=== PATIENT | female | born 1965 | race Caucasian/White ===

== ENCOUNTER → 2022-06-20 | Outpatient (CLI) | payer BC | END | disposition home or self-care (01) | LOC: LAB 12:35 | PROVIDERS: ATTEND Family Medicine | DX: C56.9 Malignant neoplasm of unspecified ovary (principal); R10.9 Unspecified abdominal pain ==

== ENCOUNTER → 2022-06-24 | Outpatient (CLI) | payer BC | END | disposition home or self-care (01) | LOC: CT 01:41 | PROVIDERS: ATTEND Family Medicine | DX: C56.9 Malignant neoplasm of unspecified ovary (principal); N28.1 Cyst of kidney, acquired ==

== ENCOUNTER → 2023-06-01 | Outpatient (CLI) | payer BC ==
[2023-06-01 12:21] LABS: HEMATOCRIT 40.3 % (37.0-47.0); MEAN CELL VOLUME 108.9 fl (81.0-99.0); MEAN CORPUSCULAR HGB 36.8 pg (27.0-31.0); MEAN CORPUSCULAR HGB CONC 33.7 g/dl (33.0-37.0); MEAN PLATELET VOLUME 9.3 fl (9.6-12.3); PLATELET COUNT AUTOMATED 102 10*3/uL (130-400); RED CELL DISTRI WIDTH 14.4 % (0-14.5); WHITE BLOOD COUNT 4.7 10*3/uL (4.8-10.8)
[2023-06-01 12:47] LABS: ALKALINE PHOSPHATASE 84 U/L (46-116); BUN 10 mg/dl (9-23); CHLORIDE 105 mmol/L (98-107); POTASSIUM 4.3 mmol/L (3.4-5.1); SGPT/ALT 15 U/L (10-49); TOTAL PROTEIN 5.8 gm/dL (6.0-8.0)
[2023-06-01 12:51] LABS: MANUAL DIFF REFLEX YES
[2023-06-01 12:54] LABS: OVALOCYTES FEW; PLATELET SUFFICIENCY LOW (NORMAL); POLYCHROMASIA SLIGHT; TOTAL CELLS COUNTED 100 #CELLS
== END | disposition home or self-care (01) ==
LOC: CT 11:00
PROVIDERS: ATTEND Legal Medicine
DX: C56.9 Malignant neoplasm of unspecified ovary (principal); N28.1 Cyst of kidney, acquired; K76.0 Fatty (change of) liver, not elsewhere classified

== ENCOUNTER → 2023-06-08 | Outpatient (CLI) | payer BC ==
[2023-06-08 14:07] LABS: HEMATOCRIT 37.5 % (37.0-47.0); MEAN CELL VOLUME 110.6 fl (81.0-99.0); MEAN CORPUSCULAR HGB 38.1 pg (27.0-31.0); MEAN CORPUSCULAR HGB CONC 34.4 g/dl (33.0-37.0); MEAN PLATELET VOLUME 9.5 fl (9.6-12.3); PLATELET COUNT AUTOMATED 137 10*3/uL (130-400); RED BLOOD COUNT 3.39 10*6/uL (4.10-5.10); WHITE BLOOD COUNT 34.7 10*3/uL (4.8-10.8)
[2023-06-08 14:09] LABS: MANUAL DIFF REFLEX YES
[2023-06-08 14:33] LABS: ALKALINE PHOSPHATASE 73 U/L (46-116); BUN 8 mg/dl (9-23); CHLORIDE 108 mmol/L (98-107); PLATELET SUFFICIENCY NORMAL (NORMAL); POTASSIUM 3.9 mmol/L (3.4-5.1); SGPT/ALT 13 U/L (10-49); TOTAL CELLS COUNTED 100 #CELLS; TOTAL PROTEIN 5.3 gm/dL (6.0-8.0)
== END | disposition home or self-care (01) ==
LOC: LAB 13:21
PROVIDERS: ATTEND Legal Medicine
DX: C56.1 Malignant neoplasm of right ovary (principal)

== ENCOUNTER → 2023-06-15 | Outpatient (CLI) | payer BC ==
[2023-06-15 15:56] LABS: HEMATOCRIT 36.4 % (37.0-47.0); MEAN CELL VOLUME 107.4 fl (81.0-99.0); MEAN CORPUSCULAR HGB 37.5 pg (27.0-31.0); MEAN CORPUSCULAR HGB CONC 34.9 g/dl (33.0-37.0); PLATELET COUNT AUTOMATED 138 10*3/uL (130-400); RED BLOOD COUNT 3.39 10*6/uL (4.10-5.10); RED CELL DISTRI WIDTH 13.4 % (0-14.5); WHITE BLOOD COUNT 2.5 10*3/uL (4.8-10.8)
[2023-06-15 15:59] LABS: MANUAL DIFF REFLEX YES
[2023-06-15 16:18] LABS: ALKALINE PHOSPHATASE 65 U/L (46-116); BUN 13 mg/dl (9-23); CHLORIDE 106 mmol/L (98-107); POTASSIUM 3.9 mmol/L (3.4-5.1); SGPT/ALT 35 U/L (10-49); TOTAL PROTEIN 5.8 gm/dL (6.0-8.0)
[2023-06-15 16:21] LABS: BASOPHILS 4 % (0-1); PLATELET SUFFICIENCY NORMAL (NORMAL); TOTAL CELLS COUNTED 100 #CELLS
== END | disposition home or self-care (01) ==
LOC: LAB 15:16
PROVIDERS: ATTEND Legal Medicine
DX: Z45.2 Encounter for adjustment and management of vascular access device (principal); C56.1 Malignant neoplasm of right ovary

== ENCOUNTER → 2023-06-22 | Outpatient (CLI) | payer BC ==
[2023-06-22 14:55] LABS: BASO # 0.1 10*3/uL (0.0-0.1); BASO % 0.9 % (0.0-1.0); EOS # 0.1 10*3/uL (0.0-0.4); EOS % 1.5 % (1.0-4.0); HEMATOCRIT 38.9 % (37.0-47.0); LYMPH # 1.5 10*3/uL (1.3-4.4); LYMPH % 26.9 % (27.0-41.0); MEAN CELL VOLUME 106.3 fl (81.0-99.0); MEAN CORPUSCULAR HGB 37.2 pg (27.0-31.0); MEAN PLATELET VOLUME 9.6 fl (9.6-12.3); MONO # 0.4 10*3/uL (0.1-1.0); MONO % 7.8 % (3.0-9.0); NEUT # 3.4 10*3/uL (2.3-7.9); NEUT % 62.5 % (47.0-73.0); PLATELET COUNT AUTOMATED 142 10*3/uL (130-400); RED BLOOD COUNT 3.66 10*6/uL (4.10-5.10); WHITE BLOOD COUNT 5.4 10*3/uL (4.8-10.8)
[2023-06-22 15:16] LABS: ALKALINE PHOSPHATASE 72 U/L (46-116); BUN 12 mg/dl (9-23); CHLORIDE 105 mmol/L (98-107); POTASSIUM 3.9 mmol/L (3.4-5.1); SGPT/ALT 16 U/L (10-49); TOTAL PROTEIN 5.8 gm/dL (6.0-8.0)
== END | disposition home or self-care (01) ==
LOC: LAB 14:03
PROVIDERS: ATTEND Legal Medicine
DX: Z45.2 Encounter for adjustment and management of vascular access device (principal); C56.1 Malignant neoplasm of right ovary

== ENCOUNTER → 2023-07-03 | Outpatient (CLI) | payer BC | END | disposition home or self-care (01) | LOC: LAB 11:51 | PROVIDERS: ATTEND Legal Medicine | DX: Z45.2 Encounter for adjustment and management of vascular access device (principal); C56.1 Malignant neoplasm of right ovary ==

== ENCOUNTER → 2023-07-06 | Outpatient (CLI) | payer BC ==
[2023-07-06 13:07] LABS: HEMATOCRIT 38.6 % (37.0-47.0); MEAN CELL VOLUME 108.4 fl (81.0-99.0); MEAN CORPUSCULAR HGB 36.5 pg (27.0-31.0); MEAN CORPUSCULAR HGB CONC 33.7 g/dl (33.0-37.0); MEAN PLATELET VOLUME 9.8 fl (9.6-12.3); PLATELET COUNT AUTOMATED 116 10*3/uL (130-400); RED BLOOD COUNT 3.56 10*6/uL (4.10-5.10); WHITE BLOOD COUNT 3.3 10*3/uL (4.8-10.8)
[2023-07-06 13:18] LABS: MANUAL DIFF REFLEX YES
[2023-07-06 13:27] LABS: ALKALINE PHOSPHATASE 54 U/L (46-116); BUN 14 mg/dl (9-23); CHLORIDE 109 mmol/L (98-107); SGPT/ALT 23 U/L (10-49)
[2023-07-06 13:55] LABS: PLATELET SUFFICIENCY LOW (NORMAL); POLYCHROMASIA SLIGHT; TOTAL CELLS COUNTED 100 #CELLS
== END | disposition home or self-care (01) ==
LOC: LAB 11:24
PROVIDERS: ATTEND Legal Medicine
DX: Z45.2 Encounter for adjustment and management of vascular access device (principal); C56.1 Malignant neoplasm of right ovary

== ENCOUNTER → 2023-07-14 | Outpatient (CLI) | payer BC ==
[2023-07-14 14:24] LABS: BASO % 0.8 % (0.0-1.0); EOS # 0.1 10*3/uL (0.0-0.4); EOS % 1.4 % (1.0-4.0); HEMATOCRIT 39.7 % (37.0-47.0); LYMPH # 1.5 10*3/uL (1.3-4.4); LYMPH % 29.7 % (27.0-41.0); MEAN CELL VOLUME 106.4 fl (81.0-99.0); MEAN CORPUSCULAR HGB 37.8 pg (27.0-31.0); MEAN CORPUSCULAR HGB CONC 35.5 g/dl (33.0-37.0); MEAN PLATELET VOLUME 9.5 fl (9.6-12.3); MONO # 0.4 10*3/uL (0.1-1.0); MONO % 8.1 % (3.0-9.0); NEUT # 3.1 10*3/uL (2.3-7.9); NEUT % 59.8 % (47.0-73.0); PLATELET COUNT AUTOMATED 136 10*3/uL (130-400); RED BLOOD COUNT 3.73 10*6/uL (4.10-5.10); RED CELL DISTRI WIDTH 13.7 % (0-14.5); WHITE BLOOD COUNT 5.2 10*3/uL (4.8-10.8)
[2023-07-14 14:48] LABS: ALKALINE PHOSPHATASE 60 U/L (46-116); BUN 11 mg/dl (9-23); CHLORIDE 106 mmol/L (98-107); POTASSIUM 4.2 mmol/L (3.4-5.1); SGPT/ALT 22 U/L (10-49); TOTAL PROTEIN 6.2 gm/dL (6.0-8.0)
== END | disposition home or self-care (01) ==
LOC: LAB 13:15
PROVIDERS: ATTEND Legal Medicine
DX: Z45.2 Encounter for adjustment and management of vascular access device (principal); C56.1 Malignant neoplasm of right ovary

== ENCOUNTER → 2023-07-20 | Outpatient (CLI) | payer BC ==
[2023-07-20 12:00] LABS: BASO % 1.1 % (0.0-1.0); EOS # 0.1 10*3/uL (0.0-0.4); HEMATOCRIT 39.9 % (37.0-47.0); LYMPH # 1.2 10*3/uL (1.3-4.4); LYMPH % 44.7 % (27.0-41.0); MEAN CELL VOLUME 106.1 fl (81.0-99.0); MEAN CORPUSCULAR HGB 36.2 pg (27.0-31.0); MEAN CORPUSCULAR HGB CONC 34.1 g/dl (33.0-37.0); MEAN PLATELET VOLUME 9.6 fl (9.6-12.3); MONO # 0.2 10*3/uL (0.1-1.0); MONO % 5.7 % (3.0-9.0); NEUT # 1.2 10*3/uL (2.3-7.9); NEUT % 45.5 % (47.0-73.0); PLATELET COUNT AUTOMATED 126 10*3/uL (130-400); RED BLOOD COUNT 3.76 10*6/uL (4.10-5.10); RED CELL DISTRI WIDTH 13.2 % (0-14.5); WHITE BLOOD COUNT 2.6 10*3/uL (4.8-10.8)
[2023-07-20 12:25] LABS: ALKALINE PHOSPHATASE 52 U/L (46-116); BUN 10 mg/dl (9-23); CHLORIDE 110 mmol/L (98-107); CHOLESTEROL 152 mg/dL (<200); LDL CHOLESTEROL 76 mg/dL (9-159); POTASSIUM 4.1 mmol/L (3.4-5.1); SGPT/ALT 40 U/L (10-49); TRIGLYCERIDES 158 mg/dl (<150)
== END | disposition home or self-care (01) ==
LOC: LAB 10:24
PROVIDERS: Family Medicine; ATTEND Legal Medicine
DX: Z45.2 Encounter for adjustment and management of vascular access device (principal); C56.1 Malignant neoplasm of right ovary; I10 Essential (primary) hypertension; E78.2 Mixed hyperlipidemia

== ENCOUNTER → 2023-07-27 | Outpatient (CLI) | payer BC ==
[2023-07-27 14:50] LABS: BASO % 0.8 % (0.0-1.0); EOS # 0.1 10*3/uL (0.0-0.4); EOS % 2.2 % (1.0-4.0); HEMATOCRIT 40.8 % (37.0-47.0); LYMPH # 1.3 10*3/uL (1.3-4.4); LYMPH % 25.8 % (27.0-41.0); MEAN CELL VOLUME 106.8 fl (81.0-99.0); MEAN CORPUSCULAR HGB 36.1 pg (27.0-31.0); MEAN CORPUSCULAR HGB CONC 33.8 g/dl (33.0-37.0); MEAN PLATELET VOLUME 9.8 fl (9.6-12.3); MONO # 0.4 10*3/uL (0.1-1.0); MONO % 8.5 % (3.0-9.0); NEUT # 3.2 10*3/uL (2.3-7.9); NEUT % 62.3 % (47.0-73.0); PLATELET COUNT AUTOMATED 132 10*3/uL (130-400); RED BLOOD COUNT 3.82 10*6/uL (4.10-5.10); RED CELL DISTRI WIDTH 13.2 % (0-14.5); WHITE BLOOD COUNT 5.1 10*3/uL (4.8-10.8)
[2023-07-27 15:08] LABS: ALKALINE PHOSPHATASE 62 U/L (46-116); BUN 9 mg/dl (9-23); CHLORIDE 112 mmol/L (98-107); POTASSIUM 3.4 mmol/L (3.4-5.1); SGPT/ALT 17 U/L (10-49); TOTAL PROTEIN 5.1 gm/dL (6.0-8.0)
== END | disposition short-term general hospital (02) ==
LOC: LAB 13:42
PROVIDERS: ATTEND Legal Medicine
DX: C56.1 Malignant neoplasm of right ovary (principal)

== ENCOUNTER → 2023-08-10 | Outpatient (CLI) | payer BC ==
[2023-08-10 12:25] LABS: HEMATOCRIT 38.2 % (37.0-47.0); MEAN CELL VOLUME 104.4 fl (81.0-99.0); MEAN CORPUSCULAR HGB 35.2 pg (27.0-31.0); MEAN CORPUSCULAR HGB CONC 33.8 g/dl (33.0-37.0); MEAN PLATELET VOLUME 9.4 fl (9.6-12.3); PLATELET COUNT AUTOMATED 150 10*3/uL (130-400); RED BLOOD COUNT 3.66 10*6/uL (4.10-5.10)
[2023-08-10 12:43] LABS: MANUAL DIFF REFLEX YES; WHITE BLOOD COUNT 1.9 10*3/uL (4.8-10.8)
[2023-08-10 13:03] LABS: BASOPHILS 1 % (0-1); TOTAL CELLS COUNTED 100 #CELLS
[2023-08-10 13:04] LABS: PLATELET SUFFICIENCY NORMAL (NORMAL)
[2023-08-10 13:06] LABS: ATYPICAL LYMPHS 2 % (0-0)
[2023-08-10 13:07] LABS: ALKALINE PHOSPHATASE 51 U/L (46-116); BUN 8 mg/dl (9-23); CHLORIDE 106 mmol/L (98-107); POTASSIUM 3.9 mmol/L (3.4-5.1); SGPT/ALT 61 U/L (10-49); TOTAL PROTEIN 5.9 gm/dL (6.0-8.0)
== END | disposition home or self-care (01) ==
LOC: LAB 11:26
PROVIDERS: ATTEND Legal Medicine
DX: Z45.2 Encounter for adjustment and management of vascular access device (principal); C56.1 Malignant neoplasm of right ovary

== ENCOUNTER → 2023-08-17 | Outpatient (CLI) | payer BC ==
[2023-08-17 14:06] LABS: BASO % 0.5 % (0.0-1.0); EOS # 0.1 10*3/uL (0.0-0.4); EOS % 1.4 % (1.0-4.0); HEMATOCRIT 38.6 % (37.0-47.0); LYMPH # 1.5 10*3/uL (1.3-4.4); LYMPH % 25.1 % (27.0-41.0); MEAN CELL VOLUME 103.8 fl (81.0-99.0); MEAN CORPUSCULAR HGB 36.3 pg (27.0-31.0); MEAN PLATELET VOLUME 9.6 fl (9.6-12.3); MONO # 0.4 10*3/uL (0.1-1.0); MONO % 6.4 % (3.0-9.0); NEUT # 3.8 10*3/uL (2.3-7.9); NEUT % 65.7 % (47.0-73.0); PLATELET COUNT AUTOMATED 142 10*3/uL (130-400); RED BLOOD COUNT 3.72 10*6/uL (4.10-5.10); RED CELL DISTRI WIDTH 12.8 % (0-14.5); WHITE BLOOD COUNT 5.8 10*3/uL (4.8-10.8)
[2023-08-17 14:33] LABS: ALKALINE PHOSPHATASE 72 U/L (46-116); BUN 7 mg/dl (9-23); CHLORIDE 107 mmol/L (98-107); POTASSIUM 3.8 mmol/L (3.4-5.1); SGPT/ALT 26 U/L (10-49); TOTAL PROTEIN 5.8 gm/dL (6.0-8.0)
== END | disposition home or self-care (01) ==
LOC: LAB 13:04
PROVIDERS: ATTEND Legal Medicine
DX: Z45.2 Encounter for adjustment and management of vascular access device (principal); C56.1 Malignant neoplasm of right ovary

== ENCOUNTER → 2023-08-24 | Outpatient (CLI) | payer BC ==
[~2023-08-24] VITALS: Ht 165.1 cm; Wt 48.5 kg
[2023-08-24 11:37] VITALS: BP 132/72
[2023-08-24 13:07] LABS: BASO % 1.1 % (0.0-1.0); EOS # 0.1 10*3/uL (0.0-0.4); EOS % 2.2 % (1.0-4.0); HEMATOCRIT 37.5 % (37.0-47.0); LYMPH # 1.3 10*3/uL (1.3-4.4); LYMPH % 36.3 % (27.0-41.0); MEAN CELL VOLUME 101.9 fl (81.0-99.0); MEAN CORPUSCULAR HGB 35.3 pg (27.0-31.0); MEAN CORPUSCULAR HGB CONC 34.7 g/dl (33.0-37.0); MEAN PLATELET VOLUME 9.9 fl (9.6-12.3); MONO # 0.3 10*3/uL (0.1-1.0); MONO % 7.6 % (3.0-9.0); NEUT # 1.9 10*3/uL (2.3-7.9); NEUT % 52.5 % (47.0-73.0); PLATELET COUNT AUTOMATED 165 10*3/uL (130-400); RED BLOOD COUNT 3.68 10*6/uL (4.10-5.10); RED CELL DISTRI WIDTH 13.2 % (0-14.5); WHITE BLOOD COUNT 3.7 10*3/uL (4.8-10.8)
[2023-08-24 13:34] LABS: ALKALINE PHOSPHATASE 53 U/L (46-116); BUN 10 mg/dl (9-23); CHLORIDE 109 mmol/L (98-107); POTASSIUM 4.2 mmol/L (3.4-5.1); SGPT/ALT 16 U/L (10-49); TOTAL PROTEIN 5.9 gm/dL (6.0-8.0)
== END | disposition home or self-care (01) ==
LOC: LAB 11:00
PROVIDERS: ATTEND Legal Medicine
DX: Z45.2 Encounter for adjustment and management of vascular access device (principal); C56.1 Malignant neoplasm of right ovary

== ENCOUNTER → 2023-08-31 | Outpatient (CLI) | payer BC ==
[2023-08-31 13:04] LABS: HEMATOCRIT 38.4 % (37.0-47.0); MEAN CELL VOLUME 105.2 fl (81.0-99.0); MEAN CORPUSCULAR HGB 34.5 pg (27.0-31.0); MEAN CORPUSCULAR HGB CONC 32.8 g/dl (33.0-37.0); PLATELET COUNT AUTOMATED 99 10*3/uL (130-400); RED BLOOD COUNT 3.65 10*6/uL (4.10-5.10); RED CELL DISTRI WIDTH 13.2 % (0-14.5); WHITE BLOOD COUNT 8.4 10*3/uL (4.8-10.8)
[2023-08-31 13:06] LABS: MANUAL DIFF REFLEX YES
[2023-08-31 13:37] LABS: ALKALINE PHOSPHATASE 65 U/L (46-116); BUN 8 mg/dl (9-23); CHLORIDE 107 mmol/L (98-107); POTASSIUM 3.9 mmol/L (3.4-5.1); SGPT/ALT 27 U/L (5-49); TOTAL PROTEIN 5.6 gm/dL (6.0-8.0)
[2023-08-31 13:48] LABS: BASOPHILS 1 % (0-1); PLATELET SUFFICIENCY LOW (NORMAL); TOTAL CELLS COUNTED 100 #CELLS
== END | disposition home or self-care (01) ==
LOC: LAB 00:59
PROVIDERS: ATTEND Legal Medicine
DX: Z45.2 Encounter for adjustment and management of vascular access device (principal); C56.1 Malignant neoplasm of right ovary

== ENCOUNTER → 2023-09-07 | Outpatient (CLI) | payer BC ==
[2023-09-07 12:53] LABS: BASO % 0.7 % (0.0-1.0); EOS # 0.1 10*3/uL (0.0-0.4); EOS % 2.1 % (1.0-4.0); HEMATOCRIT 37.8 % (37.0-47.0); LYMPH # 1.2 10*3/uL (1.3-4.4); LYMPH % 42.1 % (27.0-41.0); MEAN CELL VOLUME 104.7 fl (81.0-99.0); MEAN CORPUSCULAR HGB 35.2 pg (27.0-31.0); MEAN CORPUSCULAR HGB CONC 33.6 g/dl (33.0-37.0); MEAN PLATELET VOLUME 9.9 fl (9.6-12.3); MONO # 0.3 10*3/uL (0.1-1.0); MONO % 9.6 % (3.0-9.0); NEUT # 1.3 10*3/uL (2.3-7.9); NEUT % 45.2 % (47.0-73.0); PLATELET COUNT AUTOMATED 139 10*3/uL (130-400); RED BLOOD COUNT 3.61 10*6/uL (4.10-5.10); RED CELL DISTRI WIDTH 13.5 % (0-14.5); WHITE BLOOD COUNT 2.9 10*3/uL (4.8-10.8)
[2023-09-07 13:05] LABS: ALKALINE PHOSPHATASE 59 U/L (46-116); BUN 12 mg/dl (9-23); CHLORIDE 109 mmol/L (98-107); SGPT/ALT 12 U/L (5-49); TOTAL PROTEIN 5.7 gm/dL (6.0-8.0)
== END | disposition home or self-care (01) ==
LOC: LAB 00:42
PROVIDERS: ATTEND Legal Medicine
DX: Z45.2 Encounter for adjustment and management of vascular access device (principal); C56.1 Malignant neoplasm of right ovary

== ENCOUNTER → 2023-09-11 | Outpatient (CLI) | payer BC | END | disposition home or self-care (01) | LOC: US 08:00 | PROVIDERS: ATTEND Legal Medicine | DX: K80.20 Calculus of gallbladder without cholecystitis without obstruction (principal); N28.1 Cyst of kidney, acquired; Z87.19 Personal history of other diseases of the digestive system ==

== ENCOUNTER → 2023-09-14 | Outpatient (CLI) | payer BC ==
[2023-09-14 12:30] LABS: HEMATOCRIT 39.1 % (37.0-47.0); MEAN CELL VOLUME 103.4 fl (81.0-99.0); MEAN CORPUSCULAR HGB 35.4 pg (27.0-31.0); MEAN CORPUSCULAR HGB CONC 34.3 g/dl (33.0-37.0); MEAN PLATELET VOLUME 9.5 fl (9.6-12.3); PLATELET COUNT AUTOMATED 172 10*3/uL (130-400); RED BLOOD COUNT 3.78 10*6/uL (4.10-5.10); RED CELL DISTRI WIDTH 13.9 % (0-14.5)
[2023-09-14 12:31] LABS: MANUAL DIFF REFLEX YES
[2023-09-14 12:49] LABS: ALKALINE PHOSPHATASE 90 U/L (46-116); BUN 7 mg/dl (9-23); CHLORIDE 110 mmol/L (98-107); POTASSIUM 3.9 mmol/L (3.4-5.1); SGPT/ALT 14 U/L (5-49)
[2023-09-14 13:17] LABS: DOHLE BODIES FEW; PLATELET SUFFICIENCY NORMAL (NORMAL); POLYCHROMASIA SLIGHT; TOTAL CELLS COUNTED 100 #CELLS; TOXIC GRANULATION SLIGHT; VACUOLATION OF NEUTROPHILS SLIGHT
== END | disposition home or self-care (01) ==
LOC: LAB 00:52
PROVIDERS: ATTEND Legal Medicine
DX: Z45.2 Encounter for adjustment and management of vascular access device (principal); C56.1 Malignant neoplasm of right ovary

== ENCOUNTER → 2023-09-21 | Outpatient (CLI) | payer BC ==
[2023-09-21 12:39] LABS: BASO % 0.6 % (0.0-1.0); EOS % 0.3 % (1.0-4.0); HEMATOCRIT 38.4 % (37.0-47.0); LYMPH # 1.1 10*3/uL (1.3-4.4); LYMPH % 16.8 % (27.0-41.0); MEAN CELL VOLUME 101.3 fl (81.0-99.0); MEAN CORPUSCULAR HGB 34.3 pg (27.0-31.0); MEAN CORPUSCULAR HGB CONC 33.9 g/dl (33.0-37.0); MEAN PLATELET VOLUME 9.8 fl (9.6-12.3); MONO # 0.2 10*3/uL (0.1-1.0); MONO % 2.5 % (3.0-9.0); NEUT # 5.4 10*3/uL (2.3-7.9); NEUT % 78.9 % (47.0-73.0); PLATELET COUNT AUTOMATED 88 10*3/uL (130-400); RED BLOOD COUNT 3.79 10*6/uL (4.10-5.10); RED CELL DISTRI WIDTH 13.6 % (0-14.5); WHITE BLOOD COUNT 6.8 10*3/uL (4.8-10.8)
[2023-09-21 13:08] LABS: ALKALINE PHOSPHATASE 103 U/L (46-116); BUN 11 mg/dl (9-23); CHLORIDE 108 mmol/L (98-107); POTASSIUM 4.2 mmol/L (3.4-5.1); SGPT/ALT 47 U/L (5-49); TOTAL PROTEIN 5.9 gm/dL (6.0-8.0)
== END | disposition home or self-care (01) ==
LOC: LAB 00:05
PROVIDERS: ATTEND Legal Medicine
DX: Z45.2 Encounter for adjustment and management of vascular access device (principal); C56.1 Malignant neoplasm of right ovary

== ENCOUNTER → 2023-09-28 | Outpatient (CLI) | payer BC ==
[2023-09-28 12:32] LABS: BASO % 0.3 % (0.0-1.0); EOS % 1.2 % (1.0-4.0); HEMATOCRIT 37.5 % (37.0-47.0); LYMPH # 1.1 10*3/uL (1.3-4.4); MEAN CELL VOLUME 101.6 fl (81.0-99.0); MEAN CORPUSCULAR HGB 33.6 pg (27.0-31.0); MEAN CORPUSCULAR HGB CONC 33.1 g/dl (33.0-37.0); MEAN PLATELET VOLUME 9.7 fl (9.6-12.3); MONO # 0.2 10*3/uL (0.1-1.0); MONO % 7.2 % (3.0-9.0); NEUT # 1.9 10*3/uL (2.3-7.9); NEUT % 57.3 % (47.0-73.0); PLATELET COUNT AUTOMATED 136 10*3/uL (130-400); RED BLOOD COUNT 3.69 10*6/uL (4.10-5.10); RED CELL DISTRI WIDTH 13.8 % (0-14.5); WHITE BLOOD COUNT 3.3 10*3/uL (4.8-10.8)
[2023-09-28 12:55] LABS: ALKALINE PHOSPHATASE 72 U/L (46-116); BUN 10 mg/dl (9-23); CHLORIDE 106 mmol/L (98-107); POTASSIUM 4.1 mmol/L (3.4-5.1); SGPT/ALT 20 U/L (5-49); TOTAL PROTEIN 5.9 gm/dL (6.0-8.0)
== END | disposition home or self-care (01) ==
LOC: LAB 01:03
PROVIDERS: ATTEND Legal Medicine
DX: Z45.2 Encounter for adjustment and management of vascular access device (principal); C56.1 Malignant neoplasm of right ovary

== ENCOUNTER → 2023-10-05 | Outpatient (CLI) | payer BC ==
[2023-10-05 13:01] LABS: BASO % 0.9 % (0.0-1.0); EOS # 0.1 10*3/uL (0.0-0.4); EOS % 1.5 % (1.0-4.0); HEMATOCRIT 37.2 % (37.0-47.0); LYMPH # 1.1 10*3/uL (1.3-4.4); LYMPH % 32.1 % (27.0-41.0); MEAN CELL VOLUME 99.7 fl (81.0-99.0); MEAN CORPUSCULAR HGB 33.2 pg (27.0-31.0); MEAN CORPUSCULAR HGB CONC 33.3 g/dl (33.0-37.0); MEAN PLATELET VOLUME 9.3 fl (9.6-12.3); MONO # 0.3 10*3/uL (0.1-1.0); NEUT # 1.8 10*3/uL (2.3-7.9); NEUT % 55.5 % (47.0-73.0); PLATELET COUNT AUTOMATED 182 10*3/uL (130-400); RED BLOOD COUNT 3.73 10*6/uL (4.10-5.10); RED CELL DISTRI WIDTH 13.5 % (0-14.5); WHITE BLOOD COUNT 3.3 10*3/uL (4.8-10.8)
[2023-10-05 13:18] LABS: ALKALINE PHOSPHATASE 62 U/L (46-116); BUN 10 mg/dl (9-23); CHLORIDE 109 mmol/L (98-107); POTASSIUM 3.8 mmol/L (3.4-5.1); SGPT/ALT 13 U/L (5-49); TOTAL PROTEIN 5.6 gm/dL (6.0-8.0)
== END | disposition home or self-care (01) ==
LOC: LAB 01:45
PROVIDERS: ATTEND Legal Medicine
DX: Z45.2 Encounter for adjustment and management of vascular access device (principal); C56.1 Malignant neoplasm of right ovary

== ENCOUNTER → 2023-10-19 | Outpatient (CLI) | payer BC ==
[2023-10-19 13:01] LABS: BASO # 0.1 10*3/uL (0.0-0.1); BASO % 0.8 % (0.0-1.0); EOS # 0.1 10*3/uL (0.0-0.4); HEMATOCRIT 39.5 % (37.0-47.0); LYMPH # 1.4 10*3/uL (1.3-4.4); LYMPH % 18.5 % (27.0-41.0); MEAN CORPUSCULAR HGB 33.2 pg (27.0-31.0); MEAN CORPUSCULAR HGB CONC 32.9 g/dl (33.0-37.0); MEAN PLATELET VOLUME 9.7 fl (9.6-12.3); MONO # 0.2 10*3/uL (0.1-1.0); MONO % 2.3 % (3.0-9.0); NEUT # 5.6 10*3/uL (2.3-7.9); PLATELET COUNT AUTOMATED 147 10*3/uL (130-400); RED BLOOD COUNT 3.91 10*6/uL (4.10-5.10); RED CELL DISTRI WIDTH 13.2 % (0-14.5); WHITE BLOOD COUNT 7.3 10*3/uL (4.8-10.8)
[2023-10-19 13:52] LABS: ALKALINE PHOSPHATASE 76 U/L (46-116); BUN 11 mg/dl (9-23); CHLORIDE 107 mmol/L (98-107); POTASSIUM 3.9 mmol/L (3.4-5.1); SGPT/ALT 22 U/L (5-49); TOTAL PROTEIN 5.9 gm/dL (6.0-8.0)
== END | disposition home or self-care (01) ==
LOC: LAB 01:16
PROVIDERS: ATTEND Legal Medicine
DX: Z45.2 Encounter for adjustment and management of vascular access device (principal); C56.1 Malignant neoplasm of right ovary

== ENCOUNTER → 2023-10-26 | Outpatient (CLI) | payer BC ==
[2023-10-26 12:45] LABS: BASO % 0.4 % (0.0-1.0); EOS # 0.1 10*3/uL (0.0-0.4); EOS % 1.6 % (1.0-4.0); LYMPH # 1.3 10*3/uL (1.3-4.4); LYMPH % 25.8 % (27.0-41.0); MEAN CELL VOLUME 100.8 fl (81.0-99.0); MEAN CORPUSCULAR HGB 32.4 pg (27.0-31.0); MEAN CORPUSCULAR HGB CONC 32.1 g/dl (33.0-37.0); MEAN PLATELET VOLUME 9.2 fl (9.6-12.3); MONO # 0.3 10*3/uL (0.1-1.0); MONO % 5.6 % (3.0-9.0); NEUT # 3.4 10*3/uL (2.3-7.9); NEUT % 66.4 % (47.0-73.0); PLATELET COUNT AUTOMATED 121 10*3/uL (130-400); RED BLOOD COUNT 3.77 10*6/uL (4.10-5.10); RED CELL DISTRI WIDTH 13.7 % (0-14.5); WHITE BLOOD COUNT 5.2 10*3/uL (4.8-10.8)
[2023-10-26 12:58] LABS: ALKALINE PHOSPHATASE 59 U/L (46-116); BUN 10 mg/dl (9-23); CHLORIDE 106 mmol/L (98-107); POTASSIUM 4.4 mmol/L (3.4-5.1); SGPT/ALT 16 U/L (5-49); TOTAL PROTEIN 5.7 gm/dL (6.0-8.0)
== END | disposition home or self-care (01) ==
LOC: LAB 03:23
PROVIDERS: ATTEND Legal Medicine
DX: Z45.2 Encounter for adjustment and management of vascular access device (principal); C56.1 Malignant neoplasm of right ovary

== ENCOUNTER → 2023-11-03 | Outpatient (CLI) | payer BC ==
[2023-11-03 12:31] LABS: BASO # 0.1 10*3/uL (0.0-0.1); BASO % 1.1 % (0.0-1.0); EOS # 0.1 10*3/uL (0.0-0.4); EOS % 2.6 % (1.0-4.0); HEMATOCRIT 40.2 % (37.0-47.0); LYMPH # 1.2 10*3/uL (1.3-4.4); LYMPH % 26.8 % (27.0-41.0); MEAN CELL VOLUME 101.3 fl (81.0-99.0); MEAN CORPUSCULAR HGB 32.2 pg (27.0-31.0); MEAN CORPUSCULAR HGB CONC 31.8 g/dl (33.0-37.0); MEAN PLATELET VOLUME 9.4 fl (9.6-12.3); MONO # 0.4 10*3/uL (0.1-1.0); MONO % 8.7 % (3.0-9.0); NEUT # 2.8 10*3/uL (2.3-7.9); NEUT % 60.6 % (47.0-73.0); PLATELET COUNT AUTOMATED 208 10*3/uL (130-400); RED BLOOD COUNT 3.97 10*6/uL (4.10-5.10); WHITE BLOOD COUNT 4.6 10*3/uL (4.8-10.8)
[2023-11-03 12:45] LABS: ALKALINE PHOSPHATASE 54 U/L (46-116); BUN 10 mg/dl (9-23); CHLORIDE 107 mmol/L (98-107); POTASSIUM 3.9 mmol/L (3.4-5.1); SGPT/ALT 14 U/L (5-49); TOTAL PROTEIN 5.8 gm/dL (6.0-8.0)
== END | disposition home or self-care (01) ==
LOC: LAB 00:32
PROVIDERS: ATTEND Legal Medicine
DX: Z45.2 Encounter for adjustment and management of vascular access device (principal); C56.1 Malignant neoplasm of right ovary

== ENCOUNTER → 2023-11-10 | Outpatient (CLI) | payer BC ==
[2023-11-10 11:53] LABS: BASO % 1.1 % (0.0-1.0); EOS # 0.1 10*3/uL (0.0-0.4); EOS % 2.7 % (1.0-4.0); HEMATOCRIT 38.3 % (37.0-47.0); LYMPH # 0.8 10*3/uL (1.3-4.4); LYMPH % 29.9 % (27.0-41.0); MEAN CELL VOLUME 99.2 fl (81.0-99.0); MEAN CORPUSCULAR HGB 31.9 pg (27.0-31.0); MEAN CORPUSCULAR HGB CONC 32.1 g/dl (33.0-37.0); MEAN PLATELET VOLUME 9.3 fl (9.6-12.3); MONO # 0.2 10*3/uL (0.1-1.0); MONO % 8.3 % (3.0-9.0); NEUT # 1.5 10*3/uL (2.3-7.9); NEUT % 57.6 % (47.0-73.0); PLATELET COUNT AUTOMATED 120 10*3/uL (130-400); RED BLOOD COUNT 3.86 10*6/uL (4.10-5.10); RED CELL DISTRI WIDTH 13.7 % (0-14.5); WHITE BLOOD COUNT 2.6 10*3/uL (4.8-10.8)
[2023-11-10 12:10] LABS: ALKALINE PHOSPHATASE 59 U/L (46-116); BUN 12 mg/dl (9-23); CHLORIDE 107 mmol/L (98-107); POTASSIUM 4.1 mmol/L (3.4-5.1); SGPT/ALT 22 U/L (5-49); TOTAL PROTEIN 5.8 gm/dL (6.0-8.0)
== END | disposition home or self-care (01) ==
LOC: LAB 01:07
PROVIDERS: ATTEND Legal Medicine
DX: C56.1 Malignant neoplasm of right ovary (principal)

== ENCOUNTER → 2023-11-16 | Outpatient (CLI) | payer BC ==
[2023-11-16 12:30] LABS: HEMATOCRIT 40.1 % (37.0-47.0); MEAN CELL VOLUME 102.6 fl (81.0-99.0); MEAN CORPUSCULAR HGB CONC 31.2 g/dl (33.0-37.0); MEAN PLATELET VOLUME 9.1 fl (9.6-12.3); PLATELET COUNT AUTOMATED 117 10*3/uL (130-400); RED BLOOD COUNT 3.91 10*6/uL (4.10-5.10); RED CELL DISTRI WIDTH 14.8 % (0-14.5); WHITE BLOOD COUNT 22.5 10*3/uL (4.8-10.8)
[2023-11-16 12:31] LABS: MANUAL DIFF REFLEX YES
[2023-11-16 12:55] LABS: ALKALINE PHOSPHATASE 112 U/L (46-116); BUN 9 mg/dl (9-23); CHLORIDE 105 mmol/L (98-107); POTASSIUM 4.2 mmol/L (3.4-5.1); SGPT/ALT 16 U/L (5-49); TOTAL PROTEIN 5.8 gm/dL (6.0-8.0)
[2023-11-16 13:17] LABS: OVALOCYTES FEW; PLATELET SUFFICIENCY LOW (NORMAL); POLYCHROMASIA SLIGHT; TOTAL CELLS COUNTED 100 #CELLS; TOXIC GRANULATION SLIGHT; VACUOLATION OF NEUTROPHILS SLIGHT
== END | disposition home or self-care (01) ==
LOC: LAB 00:33
PROVIDERS: ATTEND Legal Medicine
DX: Z45.2 Encounter for adjustment and management of vascular access device (principal); C56.9 Malignant neoplasm of unspecified ovary

== ENCOUNTER → 2023-11-23 | Outpatient (CLI) | payer BC ==
[2023-11-23 12:06] LABS: HEMATOCRIT 41.2 % (37.0-47.0); MEAN CELL VOLUME 100.5 fl (81.0-99.0); MEAN CORPUSCULAR HGB CONC 31.8 g/dl (33.0-37.0); MEAN PLATELET VOLUME 9.7 fl (9.6-12.3); PLATELET COUNT AUTOMATED 166 10*3/uL (130-400); WHITE BLOOD COUNT 2.1 10*3/uL (4.8-10.8)
[2023-11-23 12:08] LABS: MANUAL DIFF REFLEX YES
[2023-11-23 12:28] LABS: ALKALINE PHOSPHATASE 64 U/L (46-116); BUN 12 mg/dl (9-23); CHLORIDE 105 mmol/L (98-107); POTASSIUM 4.1 mmol/L (3.4-5.1); SGPT/ALT 21 U/L (5-49); TOTAL PROTEIN 6.3 gm/dL (6.0-8.0)
[2023-11-23 12:31] LABS: BASOPHILS 2 % (0-1); POLYCHROMASIA SLIGHT; TOTAL CELLS COUNTED 100 #CELLS
[2023-11-23 12:32] LABS: PLATELET SUFFICIENCY NORMAL (NORMAL)
== END | disposition home or self-care (01) ==
LOC: LAB 03:33
PROVIDERS: ATTEND Legal Medicine
DX: C56.1 Malignant neoplasm of right ovary (principal)

== ENCOUNTER → 2023-11-30 | Outpatient (CLI) | payer BC ==
[2023-11-30 12:08] LABS: HEMATOCRIT 42.9 % (37.0-47.0); MEAN CELL VOLUME 104.6 fl (81.0-99.0); MEAN CORPUSCULAR HGB 32.4 pg (27.0-31.0); MEAN PLATELET VOLUME 9.3 fl (9.6-12.3); PLATELET COUNT AUTOMATED 127 10*3/uL (130-400); RED CELL DISTRI WIDTH 15.5 % (0-14.5); WHITE BLOOD COUNT 31.9 10*3/uL (4.8-10.8)
[2023-11-30 12:31] LABS: ALKALINE PHOSPHATASE 108 U/L (46-116); BUN 7 mg/dl (9-23); CHLORIDE 107 mmol/L (98-107); POTASSIUM 3.9 mmol/L (3.4-5.1); SGPT/ALT 9 U/L (5-49); TOTAL PROTEIN 6.3 gm/dL (6.0-8.0)
[2023-11-30 12:35] LABS: MANUAL DIFF REFLEX YES
[2023-11-30 12:54] LABS: PLATELET SUFFICIENCY LOW (NORMAL); TOTAL CELLS COUNTED 100 #CELLS; TOXIC GRANULATION SLIGHT
== END | disposition home or self-care (01) ==
LOC: LAB 00:16
PROVIDERS: ATTEND Legal Medicine
DX: C56.1 Malignant neoplasm of right ovary (principal)

== ENCOUNTER → 2023-12-14 | Outpatient (CLI) | payer BC ==
[2023-12-14 11:59] LABS: BASO % 0.9 % (0.0-1.0); EOS % 0.7 % (1.0-4.0); HEMATOCRIT 39.1 % (37.0-47.0); LYMPH % 23.4 % (27.0-41.0); MEAN CELL VOLUME 100.3 fl (81.0-99.0); MEAN CORPUSCULAR HGB 32.1 pg (27.0-31.0); MEAN PLATELET VOLUME 9.1 fl (9.6-12.3); MONO # 0.5 10*3/uL (0.1-1.0); MONO % 11.3 % (3.0-9.0); NEUT # 2.7 10*3/uL (2.3-7.9); NEUT % 62.8 % (47.0-73.0); PLATELET COUNT AUTOMATED 138 10*3/uL (130-400); RED CELL DISTRI WIDTH 15.9 % (0-14.5); WHITE BLOOD COUNT 4.3 10*3/uL (4.8-10.8)
[2023-12-14 12:39] LABS: ALKALINE PHOSPHATASE 69 U/L (46-116); BUN 8 mg/dl (9-23); CHLORIDE 104 mmol/L (98-107); POTASSIUM 4.2 mmol/L (3.4-5.1); SGPT/ALT 9 U/L (5-49)
== END | disposition home or self-care (01) ==
LOC: LAB 01:11
PROVIDERS: ATTEND Legal Medicine
DX: C56.1 Malignant neoplasm of right ovary (principal)

== ENCOUNTER → 2023-12-21 | Outpatient (CLI) | payer BC ==
[2023-12-21 12:13] LABS: BASO # 0.1 10*3/uL (0.0-0.1); BASO % 1.4 % (0.0-1.0); EOS # 0.1 10*3/uL (0.0-0.4); EOS % 1.8 % (1.0-4.0); HEMATOCRIT 42.4 % (37.0-47.0); LYMPH # 1.1 10*3/uL (1.3-4.4); LYMPH % 21.4 % (27.0-41.0); MEAN CELL VOLUME 101.2 fl (81.0-99.0); MEAN CORPUSCULAR HGB 31.7 pg (27.0-31.0); MEAN CORPUSCULAR HGB CONC 31.4 g/dl (33.0-37.0); MEAN PLATELET VOLUME 8.9 fl (9.6-12.3); MONO # 0.6 10*3/uL (0.1-1.0); MONO % 11.2 % (3.0-9.0); NEUT # 3.1 10*3/uL (2.3-7.9); PLATELET COUNT AUTOMATED 166 10*3/uL (130-400); RED BLOOD COUNT 4.19 10*6/uL (4.10-5.10); RED CELL DISTRI WIDTH 15.4 % (0-14.5); WHITE BLOOD COUNT 4.9 10*3/uL (4.8-10.8)
[2023-12-21 12:40] LABS: ALKALINE PHOSPHATASE 58 U/L (46-116); BUN 7 mg/dl (9-23); CHLORIDE 106 mmol/L (98-107); POTASSIUM 4.2 mmol/L (3.4-5.1); SGPT/ALT 9 U/L (5-49); TOTAL PROTEIN 6.2 gm/dL (6.0-8.0)
== END | disposition home or self-care (01) ==
LOC: LAB 01:28
PROVIDERS: ATTEND Legal Medicine
DX: C56.1 Malignant neoplasm of right ovary (principal)

== ENCOUNTER → 2023-12-28 | Outpatient (CLI) | payer BC ==
[2023-12-28 12:32] LABS: BASO # 0.1 10*3/uL (0.0-0.1); BASO % 1.2 % (0.0-1.0); EOS # 0.1 10*3/uL (0.0-0.4); EOS % 2.1 % (1.0-4.0); HEMATOCRIT 39.6 % (37.0-47.0); LYMPH % 16.2 % (27.0-41.0); MEAN CELL VOLUME 102.6 fl (81.0-99.0); MEAN CORPUSCULAR HGB 31.9 pg (27.0-31.0); MEAN CORPUSCULAR HGB CONC 31.1 g/dl (33.0-37.0); MEAN PLATELET VOLUME 9.3 fl (9.6-12.3); MONO # 0.4 10*3/uL (0.1-1.0); MONO % 6.5 % (3.0-9.0); NEUT # 4.3 10*3/uL (2.3-7.9); NEUT % 73.1 % (47.0-73.0); PLATELET COUNT AUTOMATED 101 10*3/uL (130-400); RED BLOOD COUNT 3.86 10*6/uL (4.10-5.10); RED CELL DISTRI WIDTH 14.5 % (0-14.5); WHITE BLOOD COUNT 5.9 10*3/uL (4.8-10.8)
[2023-12-28 12:57] LABS: ALKALINE PHOSPHATASE 75 U/L (46-116); BUN 10 mg/dl (9-23); CHLORIDE 106 mmol/L (98-107); POTASSIUM 4.5 mmol/L (3.4-5.1); SGPT/ALT 27 U/L (5-49)
== END | disposition home or self-care (01) ==
LOC: LAB 02:09
PROVIDERS: ATTEND Legal Medicine
DX: C56.1 Malignant neoplasm of right ovary (principal)

== ENCOUNTER → 2024-01-04 | Outpatient (CLI) | payer BC ==
[2024-01-04 12:33] LABS: BASO % 0.5 % (0.0-1.0); HEMATOCRIT 40.4 % (37.0-47.0); LYMPH # 0.8 10*3/uL (1.3-4.4); LYMPH % 18.3 % (27.0-41.0); MEAN CELL VOLUME 103.9 fl (81.0-99.0); MEAN CORPUSCULAR HGB 32.6 pg (27.0-31.0); MEAN CORPUSCULAR HGB CONC 31.4 g/dl (33.0-37.0); MEAN PLATELET VOLUME 9.5 fl (9.6-12.3); MONO # 0.3 10*3/uL (0.1-1.0); MONO % 7.9 % (3.0-9.0); NEUT % 72.1 % (47.0-73.0); PLATELET COUNT AUTOMATED 98 10*3/uL (130-400); RED BLOOD COUNT 3.89 10*6/uL (4.10-5.10); WHITE BLOOD COUNT 4.2 10*3/uL (4.8-10.8)
[2024-01-04 13:03] LABS: ALKALINE PHOSPHATASE 54 U/L (46-116); BUN 7 mg/dl (9-23); CHLORIDE 107 mmol/L (98-107); POTASSIUM 4.1 mmol/L (3.4-5.1); SGPT/ALT 11 U/L (5-49); TOTAL PROTEIN 5.9 gm/dL (6.0-8.0)
== END | disposition home or self-care (01) ==
LOC: LAB 02:07
PROVIDERS: ATTEND Legal Medicine
DX: C56.1 Malignant neoplasm of right ovary (principal)

== ENCOUNTER → 2024-01-11 | Outpatient (CLI) | payer BC ==
[2024-01-11 12:57] LABS: BASO % 1.2 % (0.0-1.0); EOS % 0.9 % (1.0-4.0); HEMATOCRIT 41.4 % (37.0-47.0); LYMPH # 0.8 10*3/uL (1.3-4.4); LYMPH % 22.2 % (27.0-41.0); MEAN CELL VOLUME 101.5 fl (81.0-99.0); MEAN CORPUSCULAR HGB 32.8 pg (27.0-31.0); MEAN CORPUSCULAR HGB CONC 32.4 g/dl (33.0-37.0); MEAN PLATELET VOLUME 8.8 fl (9.6-12.3); MONO # 0.5 10*3/uL (0.1-1.0); MONO % 13.7 % (3.0-9.0); NEUT # 2.1 10*3/uL (2.3-7.9); NEUT % 61.7 % (47.0-73.0); PLATELET COUNT AUTOMATED 148 10*3/uL (130-400); RED BLOOD COUNT 4.08 10*6/uL (4.10-5.10); RED CELL DISTRI WIDTH 14.7 % (0-14.5); WHITE BLOOD COUNT 3.4 10*3/uL (4.8-10.8)
[2024-01-11 13:40] LABS: ALKALINE PHOSPHATASE 54 U/L (46-116); BUN 8 mg/dl (9-23); CHLORIDE 104 mmol/L (98-107); SGPT/ALT 12 U/L (5-49); TOTAL PROTEIN 6.4 gm/dL (6.0-8.0)
== END | disposition home or self-care (01) ==
LOC: LAB 02:16
PROVIDERS: ATTEND Legal Medicine
DX: C56.1 Malignant neoplasm of right ovary (principal)

== ENCOUNTER → 2024-01-25 | Outpatient (CLI) | payer BC ==
[2024-01-25 12:01] LABS: MEAN CELL VOLUME 102.4 fl (81.0-99.0); MEAN CORPUSCULAR HGB 31.2 pg (27.0-31.0); MEAN CORPUSCULAR HGB CONC 30.5 g/dl (33.0-37.0); MEAN PLATELET VOLUME 9.2 fl (9.6-12.3); PLATELET COUNT AUTOMATED 60 10*3/uL (130-400); RED BLOOD COUNT 3.81 10*6/uL (4.10-5.10); RED CELL DISTRI WIDTH 13.3 % (0-14.5)
[2024-01-25 12:02] LABS: MANUAL DIFF REFLEX YES
[2024-01-25 12:09] LABS: WHITE BLOOD COUNT 1.1 10*3/uL (4.8-10.8)
[2024-01-25 12:23] LABS: ALKALINE PHOSPHATASE 52 U/L (46-116); BUN 9 mg/dl (9-23); CHLORIDE 107 mmol/L (98-107); POTASSIUM 3.9 mmol/L (3.4-5.1); SGPT/ALT 16 U/L (5-49); TOTAL PROTEIN 5.8 gm/dL (6.0-8.0)
[2024-01-25 12:24] LABS: ATYPICAL LYMPHS 1 % (0-0); BASOPHILS 1 % (0-1); BURR CELLS FEW; OVALOCYTES FEW; PLATELET SUFFICIENCY LOW (NORMAL); POLYCHROMASIA SLIGHT; TOTAL CELLS COUNTED 100 #CELLS
== END | disposition home or self-care (01) ==
LOC: LAB 01-20 03:27
PROVIDERS: ATTEND Legal Medicine
DX: C56.1 Malignant neoplasm of right ovary (principal)

== ENCOUNTER → 2024-02-01 | Outpatient (CLI) | payer BC ==
[2024-02-01 11:58] LABS: BASO % 0.5 % (0.0-1.0); EOS % 0.5 % (1.0-4.0); LYMPH # 0.8 10*3/uL (1.3-4.4); LYMPH % 17.6 % (27.0-41.0); MEAN CORPUSCULAR HGB 32.5 pg (27.0-31.0); MEAN CORPUSCULAR HGB CONC 31.3 g/dl (33.0-37.0); MEAN PLATELET VOLUME 9.2 fl (9.6-12.3); MONO # 0.6 10*3/uL (0.1-1.0); MONO % 13.3 % (3.0-9.0); NEUT # 2.9 10*3/uL (2.3-7.9); NEUT % 66.7 % (47.0-73.0); PLATELET COUNT AUTOMATED 128 10*3/uL (130-400); RED BLOOD COUNT 3.75 10*6/uL (4.10-5.10); RED CELL DISTRI WIDTH 14.6 % (0-14.5); WHITE BLOOD COUNT 4.3 10*3/uL (4.8-10.8)
[2024-02-01 12:28] LABS: ALKALINE PHOSPHATASE 61 U/L (46-116); BUN 9 mg/dl (9-23); CHLORIDE 106 mmol/L (98-107); CHOLESTEROL 123 mg/dL (<200); LDL CHOLESTEROL 52 mg/dL (9-159); SGPT/ALT 8 U/L (5-49); TOTAL PROTEIN 5.8 gm/dL (6.0-8.0); TRIGLYCERIDES 214 mg/dl (<150)
== END | disposition home or self-care (01) ==
LOC: LAB 01:27
PROVIDERS: Family Medicine; ATTEND Legal Medicine
DX: C56.1 Malignant neoplasm of right ovary (principal); I10 Essential (primary) hypertension; E78.1 Pure hyperglyceridemia

== ENCOUNTER → 2024-02-08 | Outpatient (CLI) | payer BC ==
[2024-02-08 14:36] LABS: BASO % 0.3 % (0.0-1.0); HEMATOCRIT 37.8 % (37.0-47.0); LYMPH # 0.7 10*3/uL (1.3-4.4); MEAN CELL VOLUME 104.1 fl (81.0-99.0); MEAN CORPUSCULAR HGB 32.2 pg (27.0-31.0); MEAN PLATELET VOLUME 9.4 fl (9.6-12.3); MONO # 0.7 10*3/uL (0.1-1.0); MONO % 5.5 % (3.0-9.0); NEUT # 10.5 10*3/uL (2.3-7.9); NEUT % 87.9 % (47.0-73.0); PLATELET COUNT AUTOMATED 95 10*3/uL (130-400); RED BLOOD COUNT 3.63 10*6/uL (4.10-5.10); RED CELL DISTRI WIDTH 15.2 % (0-14.5); WHITE BLOOD COUNT 11.9 10*3/uL (4.8-10.8)
[2024-02-08 14:58] LABS: ALKALINE PHOSPHATASE 59 U/L (46-116); BUN 21 mg/dl (9-23); CHLORIDE 101 mmol/L (98-107); POTASSIUM 3.6 mmol/L (3.4-5.1); SGPT/ALT 13 U/L (5-49); TOTAL PROTEIN 5.9 gm/dL (6.0-8.0)
== END | disposition home or self-care (01) ==
LOC: LAB 01:32
PROVIDERS: ATTEND Legal Medicine
DX: C56.1 Malignant neoplasm of right ovary (principal)

== ENCOUNTER → 2024-02-15 | Outpatient (CLI) | payer BC ==
[2024-02-15 12:16] LABS: BASO # 0.1 10*3/uL (0.0-0.1); BASO % 0.5 % (0.0-1.0); EOS % 0.2 % (1.0-4.0); HEMATOCRIT 33.9 % (37.0-47.0); LYMPH # 1.5 10*3/uL (1.3-4.4); LYMPH % 13.3 % (27.0-41.0); MEAN CELL VOLUME 99.7 fl (81.0-99.0); MEAN CORPUSCULAR HGB 32.1 pg (27.0-31.0); MEAN CORPUSCULAR HGB CONC 32.2 g/dl (33.0-37.0); MEAN PLATELET VOLUME 9.4 fl (9.6-12.3); MONO # 1.1 10*3/uL (0.1-1.0); MONO % 10.1 % (3.0-9.0); NEUT # 8.3 10*3/uL (2.3-7.9); NEUT % 75.4 % (47.0-73.0); PLATELET COUNT AUTOMATED 142 10*3/uL (130-400); RED CELL DISTRI WIDTH 15.2 % (0-14.5)
[2024-02-15 12:37] LABS: ALKALINE PHOSPHATASE 54 U/L (46-116); BUN 9 mg/dl (9-23); CHLORIDE 102 mmol/L (98-107); POTASSIUM 4.1 mmol/L (3.4-5.1); SGPT/ALT 17 U/L (5-49); TOTAL PROTEIN 5.8 gm/dL (6.0-8.0)
== END | disposition home or self-care (01) ==
LOC: LAB 01:25
PROVIDERS: ATTEND Legal Medicine
DX: C56.1 Malignant neoplasm of right ovary (principal)

== ENCOUNTER → 2024-02-23 | Outpatient (CLI) | payer BC ==
[2024-02-23 12:48] LABS: BASO # 0.1 10*3/uL (0.0-0.1); BASO % 0.6 % (0.0-1.0); EOS % 0.3 % (1.0-4.0); HEMATOCRIT 35.5 % (37.0-47.0); LYMPH # 1.4 10*3/uL (1.3-4.4); LYMPH % 13.1 % (27.0-41.0); MEAN CELL VOLUME 102.3 fl (81.0-99.0); MEAN CORPUSCULAR HGB 31.4 pg (27.0-31.0); MEAN CORPUSCULAR HGB CONC 30.7 g/dl (33.0-37.0); MEAN PLATELET VOLUME 8.8 fl (9.6-12.3); MONO # 0.6 10*3/uL (0.1-1.0); MONO % 5.8 % (3.0-9.0); NEUT # 8.5 10*3/uL (2.3-7.9); NEUT % 79.8 % (47.0-73.0); PLATELET COUNT AUTOMATED 280 10*3/uL (130-400); RED BLOOD COUNT 3.47 10*6/uL (4.10-5.10); RED CELL DISTRI WIDTH 14.9 % (0-14.5); WHITE BLOOD COUNT 10.6 10*3/uL (4.8-10.8)
[2024-02-23 13:17] LABS: ALKALINE PHOSPHATASE 59 U/L (46-116); BUN 14 mg/dl (9-23); CHLORIDE 102 mmol/L (98-107); POTASSIUM 4.4 mmol/L (3.4-5.1); SGPT/ALT 14 U/L (5-49); TOTAL PROTEIN 6.9 gm/dL (6.0-8.0)
== END | disposition home or self-care (01) ==
LOC: LAB 02-22 02:32
PROVIDERS: ATTEND Legal Medicine
DX: C56.1 Malignant neoplasm of right ovary (principal)

== ENCOUNTER → 2024-02-29 | Outpatient (CLI) | payer BC ==
[2024-02-29 12:41] LABS: BASO # 0.1 10*3/uL (0.0-0.1); BASO % 0.7 % (0.0-1.0); EOS % 0.1 % (1.0-4.0); HEMATOCRIT 35.4 % (37.0-47.0); LYMPH # 1.8 10*3/uL (1.3-4.4); MEAN CELL VOLUME 102.3 fl (81.0-99.0); MEAN CORPUSCULAR HGB 31.5 pg (27.0-31.0); MEAN CORPUSCULAR HGB CONC 30.8 g/dl (33.0-37.0); MEAN PLATELET VOLUME 8.8 fl (9.6-12.3); MONO # 0.7 10*3/uL (0.1-1.0); NEUT # 7.4 10*3/uL (2.3-7.9); NEUT % 73.8 % (47.0-73.0); PLATELET COUNT AUTOMATED 229 10*3/uL (130-400); RED BLOOD COUNT 3.46 10*6/uL (4.10-5.10); RED CELL DISTRI WIDTH 15.3 % (0-14.5); WHITE BLOOD COUNT 10.1 10*3/uL (4.8-10.8)
[2024-02-29 13:10] LABS: ALKALINE PHOSPHATASE 53 U/L (46-116); BUN 10 mg/dl (9-23); CHLORIDE 103 mmol/L (98-107); POTASSIUM 4.3 mmol/L (3.4-5.1); SGPT/ALT 13 U/L (5-49); TOTAL PROTEIN 6.6 gm/dL (6.0-8.0)
== END | disposition home or self-care (01) ==
LOC: LAB 02:03
PROVIDERS: ATTEND Legal Medicine
DX: C56.1 Malignant neoplasm of right ovary (principal)

== ENCOUNTER → 2024-03-07 | Outpatient (CLI) | payer BC ==
[2024-03-07 12:47] LABS: BASO # 0.1 10*3/uL (0.0-0.1); BASO % 0.5 % (0.0-1.0); EOS % 0.4 % (1.0-4.0); HEMATOCRIT 33.1 % (37.0-47.0); LYMPH # 1.4 10*3/uL (1.3-4.4); LYMPH % 13.7 % (27.0-41.0); MEAN CELL VOLUME 102.5 fl (81.0-99.0); MEAN CORPUSCULAR HGB 30.7 pg (27.0-31.0); MEAN CORPUSCULAR HGB CONC 29.9 g/dl (33.0-37.0); MONO # 0.8 10*3/uL (0.1-1.0); MONO % 7.2 % (3.0-9.0); NEUT # 8.1 10*3/uL (2.3-7.9); NEUT % 77.9 % (47.0-73.0); PLATELET COUNT AUTOMATED 264 10*3/uL (130-400); RED BLOOD COUNT 3.23 10*6/uL (4.10-5.10); RED CELL DISTRI WIDTH 15.1 % (0-14.5); WHITE BLOOD COUNT 10.4 10*3/uL (4.8-10.8)
[2024-03-07 13:10] LABS: ALKALINE PHOSPHATASE 53 U/L (46-116); BUN 12 mg/dl (9-23); CHLORIDE 103 mmol/L (98-107); POTASSIUM 4.1 mmol/L (3.4-5.1); SGPT/ALT 17 U/L (5-49); TOTAL PROTEIN 6.5 gm/dL (6.0-8.0)
== END | disposition home or self-care (01) ==
LOC: LAB 00:13
PROVIDERS: ATTEND Legal Medicine
DX: C56.1 Malignant neoplasm of right ovary (principal)